=== PATIENT | male | born 1960 | race Asian ===

== ENCOUNTER 2016-06-11 11:16 | Emergency (ER) | payer OTHER ==
[2016-06-11 12:02] VITALS: BP 160/60; PULSE 82; RESP 18; TEMP 98; O2SAT 96
[2016-06-11] MEDS ORDERED: TDAP ADULT 0.5 ML INJ (BOOSTRIX) IM ONE (12:02)
[2016-06-11] MEDS ORDERED: LETS SOLN TOPICAL 1 EA SYR TP ONE (12:23)
--- NOTE | 2016-06-11 12:45 | UCPHY ---
H & P Time Seen by Provider: 06/11/16 12:17 Smoking Status: Never smoked Constitutional: Initial Vital Signs Temperature (C) 36.6 C 06/11/16 11:58 Heart Rate 82 06/11/16 11:58 Respiratory Rate 18 06/11/16 11:58 Blood Pressure 160/60 H 06/11/16 11:58 O2 Sat (%) 96 06/11/16 11:58 O2 Delivery Mode Room Air Allergies/Adverse Reactions: No Known Allergies Allergy (Unverified 06/11/16 12:12) Home Medications: Medication Instructions Recorded NK [No Known Home Meds] 06/11/16 Medical Decision Making - Data Points Medications Given: Discontinued Medications Tetracaine/Epinephrine/Lidocaine (Lets Soln Topical) 1 ea TP EDNOW ONE Stop: 06/11/16 12:24 Last Admin: 06/11/16 12:35 Dose: 1 ea Departure - Departure Disposition: Home, Routine, Self-Care Clinical Impression: Finger laceration Condition: Good Instructions: Finger Laceration (ED) Referrals: NONE *PRIMARY CARE P,. [Primary Care Provider] - As per Instructions - PQRS PQRS Measurement: na
== END 2016-06-11 13:15 | disposition home or self-care (01) ==
LOC: CED 11:16
DX: S61.211A Laceration without foreign body of left index finger without damage to nail, initial encounter (principal); W45.8XXA Other foreign body or object entering through skin, initial encounter; Y99.0 Civilian activity done for income or pay; Z23 Encounter for immunization
CPT/HCPCS: G0463-PO